=== PATIENT | female | born 1950 | race Caucasian/White ===

== ENCOUNTER 2021-05-01 06:05 | Emergency (ER) | payer MEDICARE ==
[2021-05-01] MEDS ORDERED: Sodium Chloride 0.9% 10 ML Syringe FLUSH PRN (06:16)
[2021-05-01] MEDS: diphenhydrAMINE 50 MG/ML SDV IVPUSH ONE (06:40)
--- NOTE | 2021-05-01 06:42 | EDM.PDOC ---
<Rodger Torrez - Last Filed: 05/01/21 08:15> ED HPI GENERAL MEDICAL PROBLEM - General Chief Complaint: Headache Stated Complaint: Migraine Time Seen by Provider: 05/01/21 06:15 - Related Data Allergies Allergy/AdvReac Type Severity Reaction Status Date / Time adhesive Allergy Rash Verified 07/29/19 14:04 amoxicillin [Amoxicillin] Allergy Rash Verified 07/29/19 14:04 cefuroxime axetil Allergy Rash Verified 08/12/19 12:25 [From Ceftin] codeine Allergy Cannot Verified 07/29/19 14:04 Remember cortisone Allergy Rash Verified 08/12/19 12:24 doxycycline Allergy Rash Verified 07/29/19 14:04 Estrogens Allergy Rash Verified 07/29/19 14:04 Penicillins Allergy Rash Verified 07/29/19 14:04 sulfamethoxazole Allergy Rash Verified 07/29/19 14:04 [From Bactrim] trimethoprim [From Bactrim] Allergy Rash Verified 07/29/19 14:04 alendronate sodium AdvReac Stomach Verified 08/12/19 12:25 [From Fosamax] Ache atorvastatin calcium AdvReac Muscle Verified 07/29/19 14:04 [From Lipitor] Aches gabapentin [From Neurontin] AdvReac Confusion Verified 08/12/19 12:26 raloxifene HCl [From Evista] AdvReac Headache Verified 07/29/19 14:04 Home Meds: Home Meds Benazepril/Hydrochlorothiazide [Lotensin HCT 20-25 MG] 1 tab PO DAILY 02/02/14 [History] Clopidogrel [Plavix] 75 mg PO DAILY 02/02/14 [History] Hydrocodone/Acetaminophen [Hydrocodone-Acetaminophen 5-325] 1 tab PO QID PRN 02/02/14 [History] Nitroglycerin [Nitrostat] 0.3 mg SL ASDIRECTED PRN 02/02/14 [History] Omeprazole [Prilosec] 40 mg PO DAILY PRN 02/02/14 [History] Sertraline [Zoloft] 100 mg PO DAILY 02/02/14 [History] Warfarin [Coumadin] 2.5 mg PO ASDIRECTED 02/02/14 [History] carvediloL [Coreg] 0.5 tab PO BID 02/02/14 [History] traMADol [Ultram] 50 mg PO Q4H PRN 02/02/14 [History] traZODone 200 mg PO BEDTIME 02/02/14 [History] sulfaSALAzine 500 mg PO DAILY 01/17/15 [History] Amitriptyline [Elavil] 25 mg PO BEDTIME PRN 03/07/17 [History] Budesonide/Formoterol [Symbicort 160-4.5 MCG] 2 puff PO BID PRN 03/07/17 [History] Pramipexole Di-HCl [Mirapex] 1 mg PO BEDTIME 03/07/17 [History] Calcium Carb, Citrate/Vit D3 [Calcium + D3 ER Tablet] 1 each PO BID 03/04/18 [History] Phytonadione [Vitamin K] 100 mcg PO DAILY 03/04/18 [History] Pregabalin [Lyrica] 25 mg PO DAILY 07/01/18 [History] Evolocumab [Repatha Sureclick] 140 mg SQ ASDIRECTED 06/30/19 [History] Departure - Departure Time of Disposition: 08:15 Disposition: Home, Self-Care 01 Clinical Impression: Restless leg syndrome Headache Qualifiers: Headache type: unspecified Headache chronicity pattern: unspecified pattern Intractability: not intractable Qualified Code(s): R51.9 - Headache, unspecified - Discharge Information *PRESCRIPTION DRUG MONITORING PROGRAM REVIEWED*: Not Applicable *COPY OF PRESCRIPTION DRUG MONITORING REPORT IN PATIENT ZOFIA: Not Applicable Instructions: Migraine Headache, [id number], Restless Legs Syndrome, Pain Medicine Instructions, [id number] Referrals: Trina Hill, [Primary Care Provider] - Forms: ED Department Discharge Additional Instructions: Home rest today. Decrease stimulation to your brain by decreasing lights sounds smells etc. Try to rest as much as possible the next few days. Valium 1 tablet once you get home to help with your restless legs. Recheck your blood pressure in the clinic friday or . Return to the ED if new or worsening symptoms. Follow up in the clinic in the next 3-5 days if not improving sooner if worse. <Jesse Street - Last Filed: 05/07/21 03:14> ED HPI GENERAL MEDICAL PROBLEM - General Source of Information: Reports: Patient, RN History Limitations: Reports: No Limitations - History of Present Illness INITIAL COMMENTS - FREE TEXT/NARRATIVE: Pt. presents to ER with severe headache. She states that she has been experiencing this discomfort since yesterday. Pt. states that it developed when she was out camping yesterday AM. Pt. states that she has a history of migraine headache in the past, but states that she hasn't had one in many years. Pt. denies any recent head trauma. She does complain of nausea and has vomited twice. + photophobia. She denies any vision loss or change. No problems with speech or ambulation. Denies any numbness, tingling in extremities. She denies any fever or chills. Pt. was found to be hypertensive on arrival to ER this AM. She denies any recent changes to her blood pressure medication. She denies any chest pain or shortness of breath. Pt. is on eliquis. Onset Date: 04/30/21 Location: Reports: Head Associated Symptoms: Reports: Nausea/Vomiting Headache Pain Score (Numeric/FACES): 7 Past Medical History Cardiovascular History: Reports: Heart Failure Musculoskeletal History: Reports: Osteoporosis, RA Other Immunologic History: RA Social & Family History - Caffeine Use Caffeine Use: Reports: Coffee ED ROS GENERAL - Review of Systems Review Of Systems: See Below Constitutional: Reports: No Symptoms HEENT: Reports: No Symptoms Respiratory: Reports: No Symptoms Cardiovascular: Reports: No Symptoms Endocrine: Reports: No Symptoms GI/Abdominal: Reports: Nausea, Vomiting : Reports: No Symptoms Musculoskeletal: Reports: No Symptoms Skin: Reports: No Symptoms Neurological: Reports: Headache. Denies: Confusion, Numbness, Paresthesia, Seizure, Syncope, Tingling, Trouble Speaking, Difficulty Walking, Weakness, Change in Speech, Gait Disturbance Psychiatric: Reports: No Symptoms Hematologic/Lymphatic: Reports: No Symptoms Immunologic: Reports: No Symptoms ED EXAM, GENERAL - Physical Exam Exam: See Below Exam Limited By: No Limitations General Appearance: Alert, WD/WN, No Apparent Distress Eye Exam: Bilateral Eye: EOMI Head: Atraumatic, Normocephalic Neck: Normal Inspection, Supple, Non-Tender, Full Range of Motion Respiratory/Chest: No Respiratory Distress, Lungs Clear, Normal Breath Sounds, No Accessory Muscle Use, Chest Non-Tender Cardiovascular: Normal Peripheral Pulses, Regular Rate, Rhythm, No Edema, No JVD Peripheral Pulses: 4+: Radial (R) GI/Abdominal: Soft, Non-Tender, No Distention, No Mass (Female) Exam: Deferred Extremities: Normal Inspection, Normal Range of Motion, Non-Tender Neurological: Alert, Oriented, CN II-XII Intact, Normal Cognition, Normal Gait, Normal Reflexes, No Motor/Sensory Deficits Psychiatric: Normal Affect, Normal Mood Skin Exam: Warm, Dry, Intact, Normal Color, No Rash Course - Vital Signs Last Recorded V/S: Last Vital Signs Temp 36.5 C 05/01/21 06:13 Pulse 107 H 05/01/21 07:58 Resp 20 05/01/21 07:58 BP 115/68 05/01/21 07:58 Pulse Ox 94 L 05/01/21 07:58 - Orders/Labs/Meds Labs: Laboratory Tests 05/01/21 05/01/21 05/01/21 Range/Units 06:26 06:26 06:26 WBC 7.9 (4.0-10.0) x10^3/uL RBC 4.63 (4.00-5.50) x10^6/uL Hgb 13.4 (12.0-16.0) g/dL Hct 39.2 (33.0-47.0) % MCV 84.7 (78.0-93.0) fL MCH 28.9 (26.0-32.0) pg MCHC 34.2 (32.0-36.0) g/dL RDW Coeff of Lalo 14.4 (10.0-15.0) % Plt Count 227 (130-400) x10^3/uL Neut % (Auto) 51.5 (50.0-80.0) % Lymph % (Auto) 31.5 (25.0-50.0) % Overton % (Auto) 10.8 (2.0-11.0) % Eos % (Auto) 5.8 H (0.0-4.0) % Baso % (Auto) 0.4 (0.2-1.2) % PT 10.1 (9.9-12.5) SEC INR 0.9 L (2.0-3.5) Sodium 131 L (136-145) mmol/L Potassium 3.7 (3.5-5.1) mmol/L Chloride 97 L (98-107) mmol/L Carbon Dioxide 28 (21-32) mmol/L Anion Gap 9.7 (5-15) mmol/L BUN 22 H (7-18) mg/dL Creatinine 1.1 H (0.55-1.02) mg/dL Est Cr Clr Drug Dosing 33.21 mL/min Estimated GFR (MDRD) 49 Glucose 104 H (70-99) mg/dL Calcium 8.9 (8.5-10.1) mg/dL Corrected Calcium 9.5 (8.5-10.1) mg/dL Phosphorus 3.4 (2.6-4.7) mg/dL Magnesium 1.8 (1.8-2.4) mg/dL Total Bilirubin 0.3 (0.2-1.0) mg/dL AST 23 (15-37) U/L ALT 16 (14-59) U/L Alkaline Phosphatase 78 (46-116) U/L C-Reactive Protein < 0.2 (<=0.9) mg/dL Total Protein 7.3 (6.4-8.2) g/dL Albumin 3.3 L (3.4-5.0) g/dL Globulin 4.0 Albumin/Globulin Ratio 0.83 Meds: Medications Discontinued Medications Generic Name Dose Route Start Last Admin Trade Name Freq PRN Reason Stop Dose Admin Diazepam 5 mg 05/01/21 08:11 05/01/21 08:25 Diazepam 5 Mg Tab PO 05/01/21 08:12 5 mg ONETIME ONE Administration Diphenhydramine HCl 50 mg 05/01/21 06:21 05/01/21 06:40 Diphenhydramine 50 Mg/Ml Sdv IVPUSH 05/01/21 06:22 50 mg ONETIME ONE Administration Hydralazine HCl 5 mg 05/01/21 06:28 05/01/21 06:43 Hydralazine 20 Mg/Ml Sdv IVPUSH 05/01/21 06:29 5 mg ONETIME ONE Administration Chlorpromazine HCl 25 mg/ 101 mls @ 200 mls/hr 05/01/21 06:21 05/01/21 06:48 Sodium Chloride IV 05/01/21 06:51 200 mls/hr ONETIME ONE Administration Lactated Ringer's 1,000 mls @ 999 mls/hr 05/01/21 07:19 05/01/21 07:20 Ringers, Lactated IV 05/01/21 08:19 999 mls/hr ONETIME ONE Administration Ketorolac Tromethamine 15 mg 05/01/21 06:22 05/01/21 07:11 Ketorolac 15 Mg/Ml Sdv IVPUSH 05/01/21 06:23 Not Given ONETIME ONE Metoclopramide HCl 10 mg 05/01/21 06:19 05/01/21 07:10 Metoclopramide 10 Mg/2 Ml Sdv IVPUSH 05/01/21 06:20 Not Given ONETIME ONE Sodium Chloride 10 ml 05/01/21 06:16 Sodium Chloride 0.9% 10 Ml Syringe FLUSH ASDIRECTED PRN Keep Vein Open - Radiology Interpretation Free Text/Narrative:: CT brain negative for acute pathology Sepsis Event Note (ED) - Evaluation Sepsis Screening Result: No Definite Risk
[2021-05-01] MEDS: hydrALAZINE 20 MG/ML SDV IVPUSH ONE (06:43)
[2021-05-01 06:53] LABS: CHLORIDE,CL 97 mmol/L (98-107); SODIUM,NA 131 mmol/L (136-145)
[2021-05-01 06:57] LABS: ANION GAP 9.7 mmol/L (5-15)
[2021-05-01] MEDS: Metoclopramide 10 MG/2 ML SDV IVPUSH ONE (07:10)
[2021-05-01] MEDS: Ketorolac 15 MG/ML SDV IVPUSH ONE (07:11)
[2021-05-01] MEDS: Lactated Ringers 1,000 ML IV ONE (07:20)
--- NOTE | 2021-05-01 07:49 | CT ---
[id number] CT/CT Head WO IV EXAM: CT Head WO IV CLINICAL DATA: HYPERTENSION,HEADACHE. COMPARISON STUDY: None FINDINGS: No intracranial hemorrhage, extra-axial fluid collection, mass, or acute ischemia. Generalized parenchymal atrophy with scattered areas of nonspecific white matter disease, commonly seen as sequela of chronic microvascular ischemia. Soft tissues are unremarkable. Paranasal sinuses and mastoid air cells are clear. IMPRESSION: No acute intracranial findings. Varinder Banda DO 05/01/21 0747 Thank you for allowing us to participate in the care of your patient.
[2021-05-01] MEDS: Diazepam 5 MG Tab PO ONE (08:25)
[2021-05-01 08:46] VITALS: BP 115/68; PULSE 107
== END 2021-05-01 08:35 | disposition home or self-care (01) ==
LOC: VM.ED 06:05
DX: R51.9 Headache, unspecified (principal); G25.81 Restless legs syndrome; I50.9 Heart failure, unspecified; Z88.0 Allergy status to penicillin; Z91.048 Other nonmedicinal substance allergy status; Z88.5 Allergy status to narcotic agent; Z88.1 Allergy status to other antibiotic agents; Z88.8 Allergy status to other drugs, medicaments and biological substances; Z79.02 Long term (current) use of antithrombotics/antiplatelets; Z79.01 Long term (current) use of anticoagulants; Z79.899 Other long term (current) drug therapy
CPT/HCPCS: 70450; 80053; 83735; 84100; 85025; 85610; 86140; 96365; 96375; 99284; A9270; J0360; J1200; J3230; J7120

== ENCOUNTER 2023-02-26 08:56 | Emergency (ER) | payer MEDICARE ==
[2023-02-26] MEDS ORDERED: Ondansetron 4 MG Tab.DIS PO ONE (09:14)
[2023-02-26] MEDS ORDERED: HYDROmorphone 0.5 MG/0.5 ML Syringe IVPUSH ONE (09:47)
[2023-02-26 18:45] VITALS: BP 139/76; PULSE 78
== END 2023-02-26 11:50 | disposition short-term general hospital (02) ==
LOC: VM.ED 08:56
DX: G93.89 Other specified disorders of brain (principal); I50.9 Heart failure, unspecified; Z91.048 Other nonmedicinal substance allergy status; Z88.0 Allergy status to penicillin; Z88.1 Allergy status to other antibiotic agents; Z88.5 Allergy status to narcotic agent; Z88.8 Allergy status to other drugs, medicaments and biological substances; Z88.2 Allergy status to sulfonamides; Z79.02 Long term (current) use of antithrombotics/antiplatelets; Z79.01 Long term (current) use of anticoagulants; Z79.899 Other long term (current) drug therapy; W18.30XA Fall on same level, unspecified, initial encounter
CPT/HCPCS: 70450; 72125; 96374; 99284; 99285-25; A9270-GY; J1170

== ENCOUNTER 2024-09-29 00:01 | Emergency (ER) | payer MEDICARE ==
[2024-09-29] MEDS ORDERED: Sodium Chloride 0.9% 10 ML Syringe FLUSH PRN (00:19)
[2024-09-29 00:59] LABS: BASOPHILS PERCENT AUTO 0.4 % (0.2-1.2); EOSINOPHILS ABSOLUTE AUTO 0.7 x10^3/uL (0.0-0.5); EOSINOPHILS PERCENT AUTO 8.7 % (0.0-4.0); HEMATOCRIT 34.7 % (33.0-47.0); HEMOGLOBIN 11.2 g/dL (12.0-16.0); IMMATURE GRAN ABSOLUTE AUTO 0.01 x10^3/uL (0.00-0.07); LYMPHOCYTES ABSOLUTE AUTO 1.7 x10^3/uL (1.0-4.8); LYMPHOCYTES PERCENT AUTO 20.9 % (25.0-50.0); MEAN CORPUSCULAR HEMOGLOBIN 27.2 pg (26.0-32.0); MEAN CORPUSCULAR HGB CONC 32.3 g/dL (32.0-36.0); MEAN CORPUSCULAR VOLUME 84.2 fL (78.0-93.0); MONOCYTES ABSOLUTE AUTO 0.9 x10^3/uL (0.0-0.8); MONOCYTES PERCENT AUTO 11.3 % (2.0-11.0); NEUTROPHILS ABSOLUTE AUTO 4.7 x10^3/uL (1.8-7.7); NEUTROPHILS PERCENT AUTO 58.6 % (50.0-80.0); PLATELET COUNT,PLT 218 x10^3/uL (130-400); RED BLOOD CELL COUNT 4.12 x10^6/uL (4.00-5.50)
[2024-09-29 01:24] LABS: PROTHROMBIN TIME 9.8 SEC (8.9-11.5); PTT,PARTIAL THROMBOPLSTIN TIME 25.7 SEC (21.9-33.8)
[2024-09-29 01:26] LABS: LACTIC ACID 1.7 mmol/L (0.4-2.0)
[2024-09-29 01:27] LABS: A/G RATIO 0.72; ALANINE AMINOTRANSFERASE,ALT 13 U/L (14-59); ALBUMIN 2.8 g/dL (3.4-5.0); ALKALINE PHOSPHATASE 68 U/L (46-116); ANION GAP 12.7 mmol/L (5-15); ASPARTATE AMNIOTRANSFERASE,AST 14 U/L (15-37); BILIRUBIN TOTAL 0.3 mg/dL (0.2-1.0); BLOOD UREA NITROGEN,BUN 21 mg/dL (7-18); C-REACTIVE PROTEIN 1.41 mg/dL (<=0.50); CALCIUM 8.6 mg/dL (8.5-10.1); CARBON DIOXIDE,CO2 27 mmol/L (21-32); CHLORIDE,CL 101 mmol/L (98-107); CREATININE 1.2 mg/dL (0.55-1.02); ESTIMATED GFR 47 mL/min (>=60); GLUCOSE RANDOM 132 mg/dL (70-99); MAGNESIUM 1.9 mg/dL (1.8-2.4); POTASSIUM,K 3.7 mmol/L (3.5-5.1); PROTEIN TOTAL,TP 6.7 g/dL (6.4-8.2); SODIUM,NA 137 mmol/L (136-145)
[2024-09-29 01:40] VITALS: PULSE 70
[2024-09-29] MEDS: Aspirin 81 MG Tab.Chew PO ONE (02:02)
[2024-09-29 02:11] VITALS: BP 150/66
[2024-09-29] MEDS: Heparin Sodium 5,000 Units/ML Vial ONE (02:55)
[2024-09-29] MEDS: Heparin Sodium/0.45% NaCl 500 ML ONE (03:00)
== END 2024-09-29 03:08 | disposition short-term general hospital (02) ==
LOC: VM.ED 00:01
DX: I21.4 Non-ST elevation (NSTEMI) myocardial infarction (principal); I50.9 Heart failure, unspecified; J44.9 Chronic obstructive pulmonary disease, unspecified; Z95.1 Presence of aortocoronary bypass graft; Z79.01 Long term (current) use of anticoagulants; Z79.82 Long term (current) use of aspirin; Z79.899 Other long term (current) drug therapy; Z88.0 Allergy status to penicillin; Z88.1 Allergy status to other antibiotic agents; Z88.2 Allergy status to sulfonamides; Z88.8 Allergy status to other drugs, medicaments and biological substances; Z91.048 Other nonmedicinal substance allergy status; Z88.6 Allergy status to analgesic agent
CPT/HCPCS: 36415; 71045; 80053; 83605; 83735; 83880; 84484; 85025; 85379; 85610; 85730; 86140; 93005; 93010; 99284; 99285; A9270; J1644